=== PATIENT | male | born 1980 | race American Indian/Alaskan Native ===

== ENCOUNTER 2020-01-23 12:18 | Emergency (ER) | payer SELFPAY ==
[2020-01-23 12:24] VITALS: BP 152/96
[2020-01-23] MEDS ORDERED: IBUPROFEN 600 MG TAB PO ONE (12:50)
--- NOTE | 2020-01-23 12:50 | Event Note ---
ED Screening Note ED Screening Note: sore throat that began yesterday discomfort with swallowing able to tolerate PO intake and secretions without difficulty +subjective fever has not taken anything for his temperature no n/v/d, no cough, no SOB pmhx none no daily meds no allergies to meds
--- NOTE | 2020-01-23 12:55 | Emergency Department Report ---
ED ENT HPI - General Chief complaint: Sore Throat Stated complaint: SORE THROAT Time Seen by Provider: 01/23/20 12:46 Source: patient Mode of arrival: Ambulatory Limitations: No Limitations - History of Present Illness Initial comments: pt is a 39 yo male who presents to the ED with c/o sore throat that began yesterday discomfort with swallowing able to tolerate PO intake and secretions without difficulty +subjective fever has not taken anything for his temperature no n/v/d, no cough, no SOB pmhx none no daily meds no allergies to meds - Related Data Previous Rx's Medication Instructions Recorded Last Taken Type Penicillin Vk [Veetids TAB] 500 mg PO BID 10 Days #40 tablet 01/23/20 Unknown Rx Allergies Allergy/AdvReac Type Severity Reaction Status Date / Time No Known Allergies Allergy Unverified 01/23/20 12:20 ED Dental HPI - General Chief complaint: Sore Throat Stated complaint: SORE THROAT Time Seen by Provider: 01/23/20 12:46 Source: patient Mode of arrival: Ambulatory Limitations: No Limitations - Related Data Previous Rx's Medication Instructions Recorded Last Taken Type Penicillin Vk [Veetids TAB] 500 mg PO BID 10 Days #40 tablet 01/23/20 Unknown Rx Allergies Allergy/AdvReac Type Severity Reaction Status Date / Time No Known Allergies Allergy Unverified 01/23/20 12:20 ED Review of Systems ROS: Stated complaint: SORE THROAT Other details as noted in HPI Comment: All other systems reviewed and negative ED Past Medical Hx - Past Medical History Previous Medical History?: No - Surgical History Past Surgical History?: No - Social History Smoking Status: Current Every Day Smoker Substance Use Type: None - Medications Home Medications: Home Medications Medication Instructions Recorded Confirmed Last Taken Type Penicillin Vk [Veetids TAB] 500 mg PO BID 10 Days #40 tablet 01/23/20 Unknown Rx ED Physical Exam - General Limitations: No Limitations General appearance: alert, in no apparent distress - Head Head exam: Present: atraumatic, normocephalic - Eye Eye exam: Present: normal appearance - ENT ENT exam: Present: mucous membranes moist, TM's normal bilaterally, normal external ear exam, other (bilateral tonsilar hypertrophy and exudates, uvula is midline, no uvular edema, no uvular devation, no tongue deviation, no trismus, no muffled voice, tolerating secretions) - Neck Neck exam: Present: lymphadenopathy (very small right anterior cervical LAD) - Respiratory Respiratory exam: Present: normal lung sounds bilaterally. Absent: respiratory distress, wheezes, rales, rhonchi, stridor, chest wall tenderness, accessory muscle use, decreased breath sounds, prolonged expiratory - Cardiovascular Cardiovascular Exam: Present: normal rhythm, tachycardia (mildly), normal heart sounds. Absent: systolic murmur, diastolic murmur, rubs, gallop - Neurological Exam Neurological exam: Present: alert, oriented X3 - Psychiatric Psychiatric exam: Present: normal affect, normal mood - Skin Skin exam: Present: warm, dry, intact ED Course Vital Signs 01/23/20 12:22 Temperature 99.5 F Pulse Rate 105 H Respiratory 18 Rate Blood Pressure 152/96 O2 Sat by Pulse 96 Oximetry ED Medical Decision Making - Medical Decision Making pt is a 39 yo male who presents to the ED with c/o sore throat that began yesterday discomfort with swallowing able to tolerate PO intake and secretions without difficulty +subjective fever has not taken anything for his temperature no n/v/d, no cough, no SOB pmhx none no daily meds no allergies to meds Vitals with mild low-grade temp and mild tachycardia. Patient given ibuprofen while in the ED. On exam: bilateral tonsilar hypertrophy and exudates, uvula is midline, no uvular edema, no uvular devation, no tongue deviation, no trismus, no muffled voice, tolerating secretions, very small right anterior cervical LAD. Examination consistent with tonsillitis most likely secondary to strep. Patient Centor criteria is elevated, will treat patient empirically. Patient given prescription for penicillin VK. advised pt please take medication as prescribed to completion. may alternate tylenol or ibuprofen as needed for fever. increase your fluid intake over the next several days. do not drink after others or allow others to drink after you. throw away your toothbrush. do warm salt water gargles. follow up with a primary care doctor. return to the emergency room for any new or worsening symptoms. Critical care attestation.: If time is entered above; I have spent that time in minutes in the direct care of this critically ill patient, excluding procedure time. ED Disposition Clinical Impression: Tonsillitis Disposition: TO HOME OR SELFCARE Is pt being admited?: No Does the pt Need Aspirin: No Condition: Stable Instructions: Tonsillitis (ED) Additional Instructions: please take medication as prescribed to completion. may alternate tylenol or ibuprofen as needed for fever. increase your fluid intake over the next several days. do not drink after others or allow others to drink after you. throw away your toothbrush. do warm salt water gargles. follow up with a primary care doctor. return to the emergency room for any new or worsening symptoms. Prescriptions: Penicillin Vk [Veetids TAB] 500 mg PO BID 10 Days #40 tablet Referrals: KELBY CALVO MD [Staff Physician] - 3-5 Days [facility] [Outside] - 3-5 Days [facility] [Outside] - 3-5 Days [facility] [Provider Group] - 3-5 Days Time of Disposition: 12:52 Print Language: CHINESE
== END 2020-01-23 13:24 | disposition home or self-care (01) ==
LOC: ED 12:18
DX: J03.90 Acute tonsillitis, unspecified (principal); R00.0 Tachycardia, unspecified; Z79.2 Long term (current) use of antibiotics
CPT/HCPCS: 99282